=== PATIENT | female | born 1985 | race Caucasian/White ===

== ENCOUNTER 2021-08-13 03:19 | Emergency (ER) | payer MEDICAID ==
[~2021-08-13] VITALS: Ht 170.2 cm; Wt 79.5 kg
[2021-08-13 03:28] VITALS: BP 111/59
[2021-08-13] MEDS ORDERED: bacitracin 15gm ointment TP ONE (03:40)
[2021-08-13] MEDS ORDERED: sulfamethoxazole/trimethoprim DS (800/160mg) tablet PO ONE (03:40)
[2021-08-13] MEDS ORDERED: TETanus/Pertussis (Acell)/Diphther VAC/PF (Tdap-Adult) 0.5ml syringe IMVAC ONE (03:40)
[2021-08-13] MEDS ORDERED: cephalexin 250mg capsule PO ONE (03:40)
[2021-08-13] MEDS ORDERED: SULF1TAB49 PO (03:42)
[2021-08-13] MEDS ORDERED: CEPH-585 PO (03:42)
== END 2021-08-13 04:46 | disposition home or self-care (01) ==
LOC: ER 03:20
DX: L03.116 Cellulitis of left lower limb (principal); Z88.5 Allergy status to narcotic agent; Z79.899 Other long term (current) drug therapy
CPT/HCPCS: 87070; 87077; 87186; 99284

== ENCOUNTER 2023-03-17 08:26 | Emergency (ER) | payer MEDICAID ==
[~2023-03-17] VITALS: Ht 170.2 cm; Wt 86.4 kg
[2023-03-17 08:31] VITALS: BP 136/78
[2023-03-17] MEDS ORDERED: MUPI22OI30 TOP (09:40)
[2023-03-17] MEDS ORDERED: CEPH-585 PO (09:40)
[2023-03-17] MEDS ORDERED: SULF1TAB49 PO (09:40)
[2023-03-17] MEDS ORDERED: CefTRIAXone 1000mg IM Kit (w/lidocaine diluent) IM ONE (09:45)
[2023-03-17] MEDS ORDERED: TETanus/Pertussis (Acell)/Diphther VAC/PF (Tdap-Adult) 0.5ml syringe IMVAC ONE (09:45)
[2023-03-17] MEDS ORDERED: HYDROcodone/acetaminophen 5mg/325mg tablet PO ONE (10:00)
[2023-03-17] MEDS ORDERED: bacitracin 15gm ointment TP ONE (10:00)
== END 2023-03-17 10:52 | disposition home or self-care (01) ==
LOC: ER 08:27
DX: L03.011 Cellulitis of right finger (principal); Z88.5 Allergy status to narcotic agent
CPT/HCPCS: 90471; 90715; 96372; 99284; J0696

== ENCOUNTER → 2024-07-30 | Emergency (ER) | payer OTHER, MEDICAID ==
[~2024-07-30] VITALS: Ht 170.2 cm; Wt 81.8 kg
[~2024-07-30] MED LIST: CYCL-1 PO; IBUP-1984 PO; LIDO700A32 TD; LIDO700A32 TOP
[2024-07-30 16:58] VITALS: BP 137/97; PULSE 92; RESP 18; O2SAT 97
[2024-07-30 19:03] VITALS: TEMP 97.9
== END | disposition home or self-care (01) ==
LOC: ER 16:25
DX: S16.1XXA Strain of muscle, fascia and tendon at neck level, initial encounter (principal); Z88.5 Allergy status to narcotic agent; Z79.899 Other long term (current) drug therapy; V89.2XXA Person injured in unspecified motor-vehicle accident, traffic, initial encounter; Y92.410 Unspecified street and highway as the place of occurrence of the external cause; Y93.89 Activity, other specified; Y99.8 Other external cause status
CPT/HCPCS: 99283; L0172

== ENCOUNTER 2025-05-30 16:22 | Emergency (ER) | payer MEDICAID ==
[~2025-05-30] VITALS: Ht 170.2 cm; Wt 90.9 kg
[~2025-05-30 16:22] MED LIST changes: -IBUP-1984 PO; +LIDO-52 TD; +LIDO-52 TOP; -LIDO700A32 TD; -LIDO700A32 TOP
[2025-05-30 16:32] VITALS: BP 139/98; O2SAT 98
[2025-05-30] MEDS: TETanus/Pertussis (Acell)/Diphther VAC/PF (Tdap-Adult) 0.5ml syringe IMVAC ONE (17:30)
[2025-05-30] MEDS: LIDOcaine 1% W/epiNEPHrine 1:100,000 20ml vial IJ ONE (17:30)
[2025-05-30 18:03] LABS: MEAN PLATELET VOLUME 8.8 FL (7.4-10.4); RED CELL DISTRIBUTION WIDTH 16.6 % (11.5-14.5)
[2025-05-30 18:19] LABS: CREATININE 1.06 MG/DL (0.40-0.90); TOTAL CARBON DIOXIDE 23.8 MMOL/L (24-32); eCRCL 69 ML/MIN; eGFR 57 ML/MIN
--- NOTE | 2025-05-30 22:37 | Physician Documentation ---
History of Present Illness ~ Chief Complaint: Wound Stated Complaint: STAPH INFECTION Time Seen by MD: 17:38 Primary Medical Doctor: none HPI Patient is a 39-year-old female that presents to the emergency department for evaluation of an abscess to the lateral inferior aspect of the thoracic region. Patient reports that she has had a history of MRSA although not recently. Repor ts that she was in [place] for approximately a week just drove back from [place] yesterday is in the car for several hours concerned that she also has not abscess in her medial right thigh. Reports that both very painful. Patient denies chills fever nausea vomiting or any other symptoms at this time. Tetanus within 5 years?: Yes Medication Reconciliation Allergies: Coded Allergies: No Known Allergies (Unverified , 05/30/25) Scheduled Cephalexin*Monohydrate* (Keflex*), 1 CAP PO QID Cyclobenzaprine* (Cyclobenzaprine*), 1 TAB PO HS Lidocaine (Lidoderm), 1 PATCH TD DAILY Sulfamethoxazole/Trimethoprim (Bactrim Ds Tablet), 1 TAB PO Q12H Scheduled PRN Lidocaine (Lidoderm), 1 PATCH TOP DAILY PRN for phosphorus 1.5 to 2.3 Past Medical History Past Medical History: No Pertinent History Past Surgical History: no surgical history Alcohol Use: None Drug Use: none Lives with: Family Lives In: Home Review of Systems ROS As stated above in the HPI, otherwise all systems are reviewed and negative. Physical Exam Vital Signs: Temperature: 97.3, Source: Temporal, Heart Rate: 135, Respiratory Rate: 16, BP: 139/98, Pulse Oximetry: 98, Weight: 90.910 Physical Exam VITALS: Reviewed and as above. GENERAL: Alert, no apparent distress. HEENT: Normocephalic, atraumatic, PERRL, EOMI, dry mucosa, no erythema RESPIRATORY: Lungs clear, normal breath sounds, no respiratory distress. CHEST: No accessory muscle use, no retractions CV: Regular rate, rhythm, no edema, no murmur, No: JVD GI: Soft, non-tender, bowels sounds present, no rebound, guarding, or rigidity BACK: No CVA tenderness, or swelling MUSCULOSKELETAL No deformities, no edema SKIN: Warm and dry, abscess noted to the right thoracic region, carried abscess noted to the right medial thigh. NEURO: Oriented x4, No motor or sensory deficit PSYCH: Normal mood and affect, no agitation Progress Results/Orders Results/Orders Completed Orders - PUJA HOLDER [employer] Cephalexin Capsule (Keflex Capsule) (05/30/25 22:40) Sulfamethox/Trimetho. Ds Tab (Septra Ds (05/30/25 22:40) Acetaminophen 325mg Tablet (Tylenol Tabl (05/30/25 22:40) Ibuprofen Tablet (Motrin Tablet) (05/30/25 22:40) Medications Received in ER Medications (Trade) Dose Ordered Sig/Isaias Route PRN Reason Start Time Stop Time Status Last Admin Dose Admin (Keflex capsule) 500 mg ONCE ONCE PO 05/30/25 22:40 05/30/25 22:41 DC 05/30/25 23:16 500 MG (Septra DS tab) 1 tab ONCE ONCE PO 05/30/25 22:40 05/30/25 22:41 DC 05/30/25 23:17 1 TAB (Tylenol tablet) 650 mg ONCE ONCE PO 05/30/25 22:40 05/30/25 22:41 DC 05/30/25 23:16 650 MG (Motrin tablet) 800 mg ONCE ONCE PO 05/30/25 22:40 05/30/25 22:41 DC 05/30/25 23:16 800 MG Vital Signs 05/30/25 05/30/25 16:32 23:21 Temp 97.3 97.3 Pulse 135 87 Resp 16 18 B/P (MAP) 139/98 Pulse Ox 98 Laboratory Tests Test 05/30/25 17:43 White Blood Count 16.3 H Red Blood Count 4.91 Hemoglobin 11.8 L Hematocrit 36.3 Mean Corpuscular Volume 73.9 L Mean Corpuscular Hemoglobin 24.1 L Mean Corpuscular Hemoglobin Concent 32.6 L Red Cell Distribution Width 16.6 H Platelet Count 392 Mean Platelet Volume 8.8 Neutrophils (%) (Auto) 79.7 H Lymphocytes (%) (Auto) 15.6 L Monocytes (%) (Auto) 4.4 Eosinophils (%) (Auto) 0 Basophils (%) (Auto) 0.3 Neutrophils # (Auto) 13.0 H Lymphocytes # (Auto) 2.6 Monocytes # (Auto) 0.7 Eosinophils # (Auto) 0.0 Basophils # (Auto) 0.0 CBC Comment Sodium Level 142 Potassium Level 3.7 Chloride Level 107 Carbon Dioxide Level 23.8 L Anion Gap 11 Blood Urea Nitrogen 9 Creatinine 1.06 H Estimated GFR/1.73 m2 57 BUN/Creatinine Ratio 8.5 L Glucose Level 92 Lactic Acid Level 1.5 Calcium Level 9.3 C-Reactive Protein 7.57 H Albumin 3.8 Procalcitonin 0.09 Chemistry Comments Microbiology Date/Time Source Procedure Growth Status 05/30/25 17:47 Blood Arm Right Blood Culture - Preliminary NEGATIVE (LESS THAN 24 HOURS) Resulted Medical Decision Making Findings This patient presents with a painful fluid pocket with fluctuance and surrounding induration and erythema, concerning for an abscess. The abscess was anesthetized with lidocaine and then I&D was performed with deloculation and purulence was expressed. There is no lymphangitic spread visible. Low concern for osteomyelitis. Patient is not immunocompromised, and there is no bullae, pain out of proportion, or rapid progression concerning for necrotizing fasciitis. Patient to be discharged home with bactrim and keflex with follow up with their PMD. Patient asked us to stop expressing any drainage from the abscess as she felt like she could not tolerate it. Significant amount of drainage remains in the abscess. Abscesses open were sending patient with dressings to light over the area. Patient will follow up in 2 days either here in the emergency department or with her primary care provider for re-evaluation. Patient will return to the emergency department if she has any worsening or recurrent symptoms or any additional concerning symptoms that we discussed here today i.e. increased redness increased swelling lymphatic spread fever chills nausea vomiting or any other concerning symptoms. Differential Dx:Considerations: Include: Abscess, Cellulitis, Dressing change, Healing wound, Other Departure Disposition: 01 HOME / SELF CARE / HOMELESS Impression: Primary Impression: Wound Additional Impression: Abscess Condition: Stable Discharge Instructions: Skin Abscess Additional Instructions: This patient presents with a painful fluid pocket with fluctuance and surrounding induration and erythema, concerning for an abscess. The abscess was anesthetized with lidocaine and then I&D was performed with deloculation and purulence was expressed. There is no lymphangitic spread visible. Low concern for osteomyelitis. Patient is not immunocompromised, and there is no bullae, pain out of proportion, or rapid progression concerning for necrotizing fasciitis. Patient to be discharged home with bactrim and keflex with follow up with their PMD. Patient asked us to stop expressing any drainage from the abscess as she felt like she could not tolerate it. Significant amount of drainage remains in the abscess. Abscesses open were sending patient with dressings to light over the area. Patient will follow up in 2 days either here in the emergency department or with her primary care provider for re-evaluation. Patient will return to the emergency department if she has any worsening or recurrent symptoms or any additional concerning symptoms that we discussed here today i.e. increased redness increased swelling lymphatic spread fever chills nausea vomiting or any other concerning symptoms. Referrals: NO PRIMARY CARE PROVIDER (PCP) Prescriptions Lidocaine (Lidoderm) 5 % Adh..patch 1 PATCH TOP DAILY for 30 Days, #10 PATCH 0 Refills may wear up to 12 hours Prov: PUJA HOLDER 05/30/25 Sulfamethoxazole/Trimethoprim (Bactrim Ds Tablet) 800 Mg-160 Mg Tablet 1 TAB PO Q12H for 10 Days, #20 TAB Prov: PUJA HOLDER 05/30/25 Cephalexin*Monohydrate* (Keflex*) 500 Mg Capsule 1 CAP PO QID for 7 Days, #28 CAP Prov: PUJA HOLDER 05/30/25 Education Educated: Patient Educated regarding: diagnosis, treatment, need for follow up Signature Scribe Signature: A Attestation: Scribed for Puja Holder by KB Knight . 05/30/25 23:28 PUJA HOLDER May 30, 2025 22:37
[2025-05-30] MEDS ORDERED: SULF1TAB49 PO (22:39)
[2025-05-30] MEDS ORDERED: CEPH-585 PO (22:39)
[2025-05-30] MEDS: ibuprofen tablet 400 MG TABLET PO ONE (23:16)
[2025-05-30] MEDS: sulfamethoxazole/trimethoprim DS (800/160mg) tablet PO ONE (23:17)
[2025-05-30 23:21] VITALS: PULSE 87; RESP 18; TEMP 97.3
[2025-05-30] MEDS ORDERED: LIDO-52 TOP (23:28)
== END 2025-05-30 23:22 | disposition home or self-care (01) ==
LOC: ER 16:23
DX: L02.213 Cutaneous abscess of chest wall (principal); L02.415 Cutaneous abscess of right lower limb
CPT/HCPCS: 10060; 36415; 80048; 83605; 84145; 85025; 86140; 87040; 87070; 87077; 87186; 99284; A6258; A6407; A6449

== ENCOUNTER 2025-08-27 17:57 | Emergency (ER) | payer MEDICAID ==
[~2025-08-27] VITALS: Ht 170.2 cm; Wt 81.9 kg
--- NOTE | 2025-08-27 18:53 | Physician Documentation ---
History of Present Illness ~ Chief Complaint: Rash Stated Complaint: INFECTION Time Seen by MD: 18:35 Primary Medical Doctor: none HPI Rash unresolved "Staph", status has been taking medication for suspected staff however has not at resolution. Requesting medication change. No evidence of abscess or bullae. Or fevers. Denies having use Bactroban nasally in the past. Medication Reconciliation Allergies: Coded Allergies: No Known Allergies (Unverified , 05/30/25) Scheduled Cyclobenzaprine* (Cyclobenzaprine*), 1 TAB PO HS Doxycycline Monohydrate (Doxycycline Monohydrate), 100 MG PO BID Lidocaine (Lidoderm), 1 PATCH TD DAILY Lidocaine (Lidoderm), 1 PATCH TOP DAILY Mupirocin* (Bactroban*), 1 APPLIC TP BID Scheduled PRN Lidocaine (Lidoderm), 1 PATCH TOP DAILY PRN for phosphorus 1.5 to 2.3 Past Medical History Past Medical History: No Pertinent History Past Surgical History: no surgical history Alcohol Use: None Drug Use: none Lives with: Family Lives In: Home Review of Systems All Other Systems at this time: Reviewed and Negative ROS See HPI Physical Exam Vital Signs: RN Vital Signs have been reviewed: Yes, Temperature: 98.7, Source: Oral, Heart Rate: 114, Respiratory Rate: 16, BP: 140/98, Pulse Oximetry: 98, Weight: 81.900 Oxygen Flow Rate: 0 General Appearance: alert, WD/WN, mild distress General Appearance Anxious Chest: no accessory muscle use Cardiovascular: normal peripheral pulses Gastrointestinal: non-tender Back: normal inspection Extremities: normal range of motion Neurologic: oriented x4 Psychiatric: anxiety Lymphatic: no adenopathy Progress Results/Orders Results/Orders Vital Signs 08/27/25 08/27/25 18:02 19:10 Temp 98.7 98.6 Pulse 114 99 Resp 16 18 B/P (MAP) 140/98 138/96 Pulse Ox 98 99 O2 Flow Rate 0 Medical Decision Making Additional information obtaine: N/A Findings 39-year-old female has completed a course of Bactrim and Keflex we will be switched over to doxycycline for unresolved rash of likely that of staff. We will additionally begin Bactroban intranasally. Recommend primary care follow up and consideration for ID if needed. Patient's safely discharged in the emergency department. Differential Dx:Considerations: Include: Abscess, Erysipelas Departure Disposition: 01 HOME / SELF CARE / HOMELESS Impression: Primary Impression: Skin infection Condition: Stable Additional Instructions: Please begin medications as directed and prescribed. Place Bactroban Intra nasal and topically. Follow up with your Primary Doctor for re-evaluation. Thank you for visiting [facility]. Referrals: NO PRIMARY CARE PROVIDER (PCP) Prescriptions Doxycycline Monohydrate (Doxycycline Monohydrate) 100 Mg Capsule 100 MG PO BID, #20 CAP may sub doxycycline hyclate or azithromycin z-pack as prescribed Prov: RICK WILKERSON 08/27/25 Mupirocin* (Bactroban*) 22 Gm Tube 1 APPLIC TP BID for 10 Days, #15 GM Prov: RICK WILKERSON 08/27/25 Education Educated: Patient Educated regarding: diagnosis, treatment, prognosis, need for follow up Signature Scribe Signature: . Attestation: . RICK WILKERSON Aug 27, 2025 18:53
[2025-08-27] MEDS ORDERED: MUPI22OI30 TP (18:57)
[2025-08-27] MEDS ORDERED: DOXY100C43 PO (18:57)
[2025-08-27 19:10] VITALS: BP 138/96; PULSE 99; RESP 18; TEMP 98.6; O2SAT 99
== END 2025-08-27 19:11 | disposition home or self-care (01) ==
LOC: ER 17:57
DX: L08.9 Local infection of the skin and subcutaneous tissue, unspecified (principal); Z79.899 Other long term (current) drug therapy
CPT/HCPCS: 99283